=== PATIENT | female | born 1995 | race Caucasian/White ===

== ENCOUNTER 2019-04-15 06:31 | Day surgery (SDC) | payer MEDICAID, OTHER ==
[~2019-04-15] VITALS: Ht 157.5 cm; Wt 63.5 kg
[2019-04-15] MEDS ORDERED: DEXAMETHASONE 4 MG/ML VIAL ONE (07:30)
[2019-04-15] MEDS ORDERED: ONDANSETRON 4 MG/2 ML VIAL ONE (07:30)
[2019-04-15] MEDS ORDERED: KETOROLAC 30 MG/ML VIAL ONE (07:30)
[2019-04-15] MEDS ORDERED: SUCCINYLCHOLINE CHLORIDE 200 MG/10 ML VIAL IVP ONE (07:30)
[2019-04-15] MEDS ORDERED: PROPOFOL 200 MG/20 ML VIAL IV ONE (07:30)
[2019-04-15] MEDS ORDERED: DESFLURANE 240 ML BTL INH ONE (07:30)
[2019-04-15] MEDS ORDERED: ROCURONIUM 50 MG/5 ML VIAL IV ONE (07:30)
[2019-04-15] MEDS ORDERED: GLYCOPYRROLATE 0.2 MG/ML VIAL ONE (07:30)
[2019-04-15] MEDS ORDERED: NEOSTIGMINE 1:1000 10 MG/10 ML VIAL ONE (07:30)
[2019-04-15] MEDS ORDERED: BUPIVACAINE-MPF/EPI 0.25% 30 ML VIAL INJ ONE (07:32)
[2019-04-15] MEDS ORDERED: HYDROmorphone PFS 2 MG/ML SYR ONE ×2 (07:44→08:45)
[2019-04-15] MEDS ORDERED: fentaNYL 0.05 MG/ML VIAL ONE (07:44)
[2019-04-15] MEDS ORDERED: ONDANSETRON 4 MG/2 ML VIAL IVP PRN (08:35)
[2019-04-15] MEDS: HYDROmorphone 1 MG/ML AMP IVP PRN ×2 (08:36→08:46)
[2019-04-15] MEDS ORDERED: MORPHINE SULFATE 2 MG/ML SYR IVP PRN (08:55)
[2019-04-15] MEDS ORDERED: ONDANSETRON 4 MG/2 ML VIAL IV PRN (08:55)
[2019-04-15] MEDS ORDERED: HYDROmorphone 1 MG/ML AMP IVP PRN (08:55)
[2019-04-15] MEDS ORDERED: HYDROcodone/APAP 5/325 MG 1 TAB TAB PO PRN (08:55)
[2019-04-15] MEDS ORDERED: MORPHINE SULFATE 4 MG/ML SYR IV PRN (08:55)
[2019-04-15] MEDS ORDERED: ACETAMINOPHEN 325 MG TAB PO PRN (08:55)
== END 2019-04-15 10:30 | disposition home or self-care (01) ==
LOC: MDS 06:31 → MMU 06:32 → MDS 10:30
PROVIDERS: ATTEND Surgery
DX: K80.10 Calculus of gallbladder with chronic cholecystitis without obstruction (principal)
CPT/HCPCS: 47562; 71045; 82374; 88304; J0330; J0690; J1100; J1170; J1885; J2405; J2704; J2710; J3010; J3490; J7030; J7060; J7120